=== PATIENT | female | born 1980 | race Caucasian/White ===

== ENCOUNTER → 2019-06-15 | Outpatient (CLI) | payer SELFPAY ==
[2019-06-17 16:46] LABS: HPV Reflexed? NOT INDICATED
== END | disposition home or self-care (01) ==
LOC: LABSPEC 06-16 11:33
PROVIDERS: Visit Provider Obstetrics & Gynecology
DX: Z12.4 Encounter for screening for malignant neoplasm of cervix (principal)
CPT/HCPCS: 87624; 88175; G0145

== ENCOUNTER 2021-12-12 14:09 | Outpatient (CLI) | payer SELFPAY ==
[2021-12-22 07:54] LABS: HPV APTIMA, High Risk Negative (Negative)
[2021-12-22 07:57] LABS: HPV Reflexed? YES, CHARGE PATIENT
== END 2021-12-12 23:59 | disposition home or self-care (01) ==
LOC: OPBI 14:09
PROVIDERS: Visit Provider Obstetrics & Gynecology
DX: Z12.4 Encounter for screening for malignant neoplasm of cervix (principal)
CPT/HCPCS: 87624; 88175; G0145

== ENCOUNTER → 2024-06-16 | Outpatient (CLI) | payer SELFPAY ==
[2024-06-22 12:09] LABS: HPV APTIMA, High Risk Negative (Negative)
== END | disposition home or self-care (01) ==
PROVIDERS: PCP Family Medicine; Referring Provider Advanced Practice Midwife; Visit Provider Advanced Practice Midwife
DX: N89.8 Other specified noninflammatory disorders of vagina (principal); Z12.4 Encounter for screening for malignant neoplasm of cervix
CPT/HCPCS: 87070; 87205; 87624; 88175; G0145